=== PATIENT | male | born 1985 ===

== ENCOUNTER 2024-03-22 08:11 | Outpatient (AMB) | payer MEDICAID, SELFPAY ==
[2024-03-22 08:30] VITALS: BP 111/70; PULSE 65; RESP 18; TEMP 36.6; O2SAT 100; BMI 24.3
--- NOTE | 2024-03-22 08:30 | PD.ORTHCLVIS ---
Vital signs 03/22/24 08:30 Height 1.68 m Height Method Stated Weight 68.266 kg Weight Measurement Method Standing Scale BMI 24.3 BP 111/70 Blood Pressure Source Automatic Cuff Blood Pressure Location Right Upper Arm Position Sitting Respiration 18 Pulse 65 Pulse Source Monitor Temp 97.8 F Temp Source Temporal Artery Scan Pulse Oximetry (%) 100 Oxygen Delivery Method Room Air Med/Allergies Allergies & Medications Allergies No Known Allergies Allergy (Verified 03/22/24 08:30) Medication Reconciliation finasteride 5 mg tablet 5 mg PO QDAY 07/23/18 [History Confirmed 03/22/24] loratadine 10 mg tablet (Claritin) 10 mg PO QDAY PRN ALLERGIES 07/23/18 [History Confirmed 03/22/24] tamsulosin 0.4 mg capsule 0.4 mg PO QDAY 07/23/18 [History Confirmed 03/22/24] Subjective Visit Visit for: new patient and knee Immunization / Flu Flu Vaccine in the Last 12 Months: Yes Flu Vaccine Exclusion Criteria: Already Received History of Present Illness Chief complaint: TEAR MENISCUS/YEARS OF LEFT KNEE PAIN Vijay is a pleasant 39-year-old male with a left knee pain. This been ongoing for 9 years. He reports he had a meniscal injury 9 years ago. He reports he is still functioning well. He is able to lift over 80 pounds and only has occasional pain. He reports that he does not want surgery at this time. 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 Exam Exam Patient is in no acute distress and is cooperative with the examination today. Breathing is nonlabored. Patient has a normal mood and affect. The patient has a gait that is [nonantalgic] Bilateral extremities were evaluated and demonstrates sensation intact to light touch. Palpable pedal pulses are present. No significant edema is present. Bilateral hips were examined. The patient has no pain with log roll of the hips. Internal rotation to 30 degrees and external rotation to 30 degrees is painless. Negative FADIR. Right knee was examined today. The right knee is in reasonable alignment. Range of motion from 0-120 degrees. Knee is stable to varus and valgus as well as AP translation with <5mm. Patient has a negative McMurrays. There is no pain with patellofemoral compression and no crepitus noted. The knee is nontender to palpation. Left knee was examined today. The left knee is in [neutral] alignment. Range of motion from [0-120] degrees. Knee is stable to varus and valgus as well as AP translation with <5mm. Patient has a [negative] McMurrays. There is [no] pain with patellofemoral compression and [no] crepitus noted. The knee is Tender to palpation medially I reviewed his x-rays and MRI from [facility]. He has a large horizontal tear of the medial meniscus of the posterior horn. Assessment and Plan Problem List (1) Acute meniscal tear of knee: Status: Acute Plan: Patient is a pleasant 39-year-old male with left knee pain that has a large horizontal meniscus tear. Reports no mechanical symptoms. He believes that this tear is over 9 Years old. We discussed nonoperative and operative options. We did talk about arthroscopic meniscectomy. Given that he has almost no pain and is functioning well, We would actually recommend nonoperative treatment at this time. He does not want surgery either at this time. We will likely do an injection and anti-inflammatories and continue with conservative treatment. 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
== END 2024-03-22 08:53 | disposition home or self-care (01) ==
LOC: HODSRG 08:11
PROVIDERS: Supervising Provider Orthopaedic Surgery Adult Reconstructive Orthopaedic Surgery; Visit Provider Orthopaedic Surgery Adult Reconstructive Orthopaedic Surgery
DX: S83.242D Other tear of medial meniscus, current injury, left knee, subsequent encounter (principal); X58.XXXD Exposure to other specified factors, subsequent encounter
CPT/HCPCS: 99204; G0463

== ENCOUNTER 2024-05-24 14:48 | Outpatient (AMB) | payer MEDICAID, SELFPAY ==
--- NOTE | 2024-05-24 15:52 | PD.ORTHCLVIS ---
Vital signs 05/24/24 15:53 Height 1.68 m Height Method Stated Weight 66.338 kg Weight Measurement Method Standing Scale BMI 23.5 BP 129/78 Blood Pressure Source Automatic Cuff Blood Pressure Location Left Upper Arm Position Sitting Respiration 18 Pulse 71 Pulse Source Monitor Temp 97.9 F Temp Source Temporal Artery Scan Pulse Oximetry (%) 97 Oxygen Delivery Method Room Air Med/Allergies Allergies & Medications Allergies No Known Allergies Allergy (Verified 05/24/24 15:53) Medication Reconciliation finasteride 5 mg tablet 5 mg PO QDAY 07/23/18 [History Confirmed 05/24/24] loratadine 10 mg tablet (Claritin) 10 mg PO QDAY PRN ALLERGIES 07/23/18 [History Confirmed 05/24/24] tamsulosin 0.4 mg capsule 0.4 mg PO QDAY 07/23/18 [History Confirmed 05/24/24] meloxicam 7.5 mg tablet 7.5 mg PO QDAY #45 tabs 05/24/24 [Rx] Exam Exam Patient is in no acute distress and is cooperative with the examination today. Breathing is nonlabored. Patient has a normal mood and affect. The patient has a gait that is [nonantalgic] Bilateral extremities were evaluated and demonstrates sensation intact to light touch. Palpable pedal pulses are present. No significant edema is present. Bilateral hips were examined. The patient has no pain with log roll of the hips. Internal rotation to 30 degrees and external rotation to 30 degrees is painless. Negative FADIR. Right knee was examined today. The right knee is in reasonable alignment. Range of motion from 0-120 degrees. Knee is stable to varus and valgus as well as AP translation with <5mm. Patient has a negative McMurrays. There is no pain with patellofemoral compression and no crepitus noted. The knee is nontender to palpation. Left knee was examined today. The left knee is in [neutral] alignment. Range of motion from [0-120] degrees. Knee is stable to varus and valgus as well as AP translation with <5mm. Patient has a [negative] McMurrays. There is [no] pain with patellofemoral compression and [no] crepitus noted. The knee is Tender to palpation medially I reviewed his x-rays and MRI from [facility]. He has a large horizontal tear of the medial meniscus of the posterior horn. Assessment and Plan Problem List (1) Acute meniscal tear of knee: Status: Acute Plan: Patient is a pleasant 39-year-old male with left knee pain that has a large horizontal meniscus tear. He Reports no mechanical symptoms. He would like to try an injection. Recommend knee cortisone injection as patient would like to proceed with conservative treatment at this time. The risks and benefits of the procedure were reviewed with the patient and patient gave verbal consent to continue with the procedure. Procedure: performed by Dr. Morris Using sterile technique the left knee was thoroughly prepped with alcohol, and approximately 1 cc of Kenalog 40 mg/mL and 4 cc of 1% lidocaine was injected without resistance into the medial tibial femoral joint space. The patient tolerated the procedure. Office Procedures GNS Level of Care Nursing/Assessment Patient Status: Established Patient Nursing Assessment/Reassesment: Medication Reconciliation, Update PMH in EMR and Vital Signs Coordination of Care: Complex Care and Chronic Disease 1-5, Education Complex Pt/Fam, Consent,records obtained, informed consent, Results/Orders obtained and Staff clarify orders Established Patient Charge Established Patient Point Assignment: 95 Established Patient Point Charge: EP Level 3 (80-115) Surgical Proc/IM SQ injection Major Surgical Procedure: Yes (LEFT KNEE INJECTION) Medication Given Medication Given Medication Given: Yes Documented Dose Given: 4 Route: Infiitration Medication Given Medication Given Medication Given: Yes Documented Dose Given: 1 Route: Infiitration Office Meds Xylocaine 10 mg/mL (1 %) injection solution Performing Provider: Nigel Morris MD Performing Location: [facility] Administered by: Nigel Morris MD on 05/24/24 16:04 Dose Route Admin Location Dispensed Lot Number Expiration Date [facility] Cost Consultant 20 mL Infiltration 20 mL [id number] 01/04/27 25107-603-60 [facility] triamcinolone acetonide 40 mg/mL suspension for injection Performing Provider: Nigel Morris MD Performing Location: [facility] Administered by: Nigel Morris MD on 05/24/24 16:04 Dose Route Admin Location Dispensed Lot Number Expiration Date [facility] Cost Consultant 40 mg intra-articular KNEE 1 mL [id number] 10/04/25 0168-3493-06 [employer]EVA PARENTERAL [place] Intake Visit Data Collection New Patient or Established: Established Patient (seen at [facility] within 3 years) Reason for Visit:: FOLLOW UP Seen by Clinical Staff ONLY (RN/MA): No Data Governance Consultant Required: No PCP or OBGYN visit in last 3 months: Yes Hx Now: No Do You Feel Safe at Home: Yes Authorities Contacted: N/A Questionairres Past Medical History Past Medical History Have you ever been diagnosed with any of the following: Neurological Problems Seizures: No Cardiology Problems Congestive Heart Failure: No Respiratory Problems Chronic Obstructive Pulmonary Disease (COPD): No Smoking: No Smoking Exposure: No Genital/Urinary Problems Renal Disease: No Endocrine Problems Diabetes Mellitus Type 1: No Diabetes Mellitus Type 2: No Other Problems Blood Transfusions: No Anesthesia Reactions: No Subjective Visit Visit for: follow up visit, knee (LEFT KNEE) and injections Immunization / Flu Flu Vaccine in the Last 12 Months: No Flu Vaccine Exclusion Criteria: No Exclusion Criteria History of Present Illness Chief complaint: left knee pain Vijay is a pleasant 39-year-old male with a left knee pain. This been ongoing for 9 years. He reports he had a meniscal injury 9 years ago. He reports he is still functioning well. He is able to lift over 80 pounds and only has occasional pain. He reports that he does not want surgery at this time. He has tried diclofenac Pain Pain level (0-10): 2 Pain duration: COMES AND GOES Pain location: inside (medial) and outside (lateral) Pain quality: dull and aching Associated signs & symptoms: none Ambulatory data Ambulatory device: none Treatments Improvement with previous injections: No Improvement with PT: No Improvement with NSAIDS: no Review of Systems Review of Systems: All systems negative unless otherwise noted in HPI.
[2024-05-24 15:53] VITALS: BP 129/78; PULSE 71; RESP 18; TEMP 36.6; O2SAT 97; BMI 23.5
== END 2024-05-24 16:32 | disposition home or self-care (01) ==
PROVIDERS: Supervising Provider Orthopaedic Surgery Adult Reconstructive Orthopaedic Surgery; Visit Provider Orthopaedic Surgery Adult Reconstructive Orthopaedic Surgery
DX: S83.242D Other tear of medial meniscus, current injury, left knee, subsequent encounter (principal); X58.XXXD Exposure to other specified factors, subsequent encounter; M25.562 Pain in left knee
CPT/HCPCS: 20610; 99213; J3301; J3490; G0463